=== PATIENT | female | born 1960 | race Caucasian/White ===

== ENCOUNTER 2017-12-25 18:56 | Emergency (ER) | payer OTHER ==
[~2017-12-25] VITALS: Ht 157.5 cm; Wt 57.0 kg
[2017-12-25 19:07] VITALS: BP 151/79; PULSE 84; RESP 18; TEMP 98; O2SAT 99
[2017-12-25] MEDS ORDERED: ARMO60TA PO (20:05)
[2017-12-25] MEDS ORDERED: SODIUM CHLOR 0.9% 1000 ML INJ 1,000 ML IV SCH (20:06)
--- NOTE | 2017-12-25 20:09 | PD ---
HPI Chief Complaint: Abdominal Pain Time Seen by Provider: 20:00 Travel History International Travel<30 days: No Contact w/Intl Traveler<30days: No Traveled to known affect area: No History of Present Illness HPI This is a 57-year-old female who presents for evaluation of abdominal pain. Symptoms started a few months ago. She reports that the pain has been intermittent in the right upper quadrant radiating to the back for the past few months, pain typically gets worse after meals. Over the past 4 days the pain has been more consistent and this is what prompted evaluation today. She denies nausea, vomiting, fevers, diarrhea, constipation, hematuria, dysuria, chest pain, shortness of breath. She reports history of , denies any other abdominal surgeries. She has no other complaints at this time. [facility] Past Medical History Thyroid Disease: Yes (hypo) Tetanus Vaccination: Unknown Influenza Vaccination: No ?: Not Menopausal: Yes Past Surgical History Section: Yes Other Surgery: Yes (Breast lift) Social History Alcohol Use: Yes (1-2 drinks on weekends) Tobacco Use: No Substance Use: No Allergies-Medications (Allergen,Severity, Reaction): Coded Allergies: acetaminophen (Verified Allergy, Severe, 12/25/17) hydrocodone (Verified Allergy, Severe, 12/25/17) sulfamethoxazole (Verified Allergy, Severe, Hives, 12/25/17) trimethoprim (Verified Allergy, Severe, Hives, 12/25/17) Reported Meds & Prescriptions Reported Meds & Active Scripts Active Protonix (Pantoprazole Sodium) 20 Mg Tab 20 Mg PO DAILY Reported [place] Thyroid (Thyroid) 60 Mg Tab 60 Mg PO DAILY Review of Systems Except as stated in HPI: all other systems reviewed are Neg Physical Exam Narrative GENERAL: Well-developed well-nourished female no acute distress SKIN: Warm and dry. HEAD: Atraumatic. Normocephalic. EYES: Pupils equal and round. No scleral icterus. No injection or drainage. ENT: No nasal bleeding or discharge. Mucous membranes pink and moist. NECK: Trachea midline. No JVD. CARDIOVASCULAR: Regular rate and rhythm. No murmur appreciated. RESPIRATORY: No accessory muscle use. Clear to auscultation. Breath sounds equal bilaterally. GASTROINTESTINAL: Abdomen soft, mild right upper quadrant tenderness to palpation without guarding. No CVA tenderness. MUSCULOSKELETAL: No obvious deformities. No clubbing. No cyanosis. No edema. NEUROLOGICAL: Awake and alert. No obvious cranial nerve deficits. Motor grossly within normal limits. Normal speech. Data Data Last Documented VS Vital Signs Date Time Temp Pulse Resp B/P (MAP) Pulse Ox O2 Delivery O2 Flow Rate FiO2 12/25/17 19:07 98.0 84 18 151/79 (103) 99 Orders Orders Complete Blood Count With Diff (12/25/17 20:06) Comprehensive Metabolic Panel (12/25/17 20:06) Lipase (12/25/17 20:06) Urinalysis - C+S If Indicated (12/25/17 20:06) Us Abdomen Gallbladder (12/25/17 ) Iv Access Insert/Monitor (12/25/17 20:06) Ecg Monitoring (12/25/17 20:06) Oximetry (12/25/17 20:06) Sodium Chlor 0.9% 1000 Ml Inj (Ns 1000 M (12/25/17 20:06) Sodium Chloride 0.9% Flush (Ns Flush) (12/25/17 20:15) Electrocardiogram (12/25/17 20:06) Ed Discharge Order (12/25/17 22:10) Labs Laboratory Tests Test 12/25/17 20:15 12/25/17 20:30 White Blood Count 5.9 TH/MM3 Red Blood Count 4.12 MIL/MM3 Hemoglobin 13.1 GM/DL Hematocrit 39.3 % Mean Corpuscular Volume 95.4 FL Mean Corpuscular Hemoglobin 31.8 PG Mean Corpuscular Hemoglobin Concent 33.3 % Red Cell Distribution Width 12.6 % Platelet Count 267 TH/MM3 Mean Platelet Volume 6.8 FL Neutrophils (%) (Auto) 42.5 % Lymphocytes (%) (Auto) 49.6 % Monocytes (%) (Auto) 6.8 % Eosinophils (%) (Auto) 0.7 % Basophils (%) (Auto) 0.4 % Neutrophils # (Auto) 2.5 TH/MM3 Lymphocytes # (Auto) 2.9 TH/MM3 Monocytes # (Auto) 0.4 TH/MM3 Eosinophils # (Auto) 0.0 TH/MM3 Basophils # (Auto) 0.0 TH/MM3 CBC Comment DIFF FINAL Differential Comment Blood Urea Nitrogen 22 MG/DL Creatinine 0.82 MG/DL Random Glucose 87 MG/DL Total Protein 7.9 GM/DL Albumin 4.3 GM/DL Calcium Level 8.9 MG/DL Alkaline Phosphatase 78 U/L Aspartate Amino Transf (AST/SGOT) 17 U/L Alanine Aminotransferase (ALT/SGPT) 17 U/L Total Bilirubin 0.6 MG/DL Sodium Level 139 MEQ/L Potassium Level 3.6 MEQ/L Chloride Level 104 MEQ/L Carbon Dioxide Level 27.0 MEQ/L Anion Gap 8 MEQ/L Estimat Glomerular Filtration Rate 72 ML/MIN Lipase 124 U/L Urine Color YELLOW Urine Turbidity HAZY Urine pH 5.0 Urine Specific [place] 1.027 Urine Protein NEG mg/dL Urine Glucose (UA) NEG mg/dL Urine Ketones 20 mg/dL Urine Occult Blood NEG Urine Nitrite NEG Urine Bilirubin NEG Urine Urobilinogen 2.0 mg/dL Urine Leukocyte Esterase NEG Urine WBC 1 /hpf Urine Mucus FEW /lpf Microscopic Urinalysis Comment CULT NOT INDICATED MDM Medical Decision Making Medical Screen Exam Complete: Yes Emergency Medical Condition: Yes Medical Record Reviewed: Yes Differential Diagnosis Biliary colic, cholecystitis, choledocholithiasis, duodenal ulcer, peptic ulcer disease, colitis Narrative Course 57-year-old female presents with intermittent epigastric and right upper quadrant pain over the past few months, worse with meals, now more steady over the past few days. On examination she has mild epigastric and right upper quadrant tenderness without guarding. She appears well. Plan is for lab work, right upper quadrant ultrasound. She was given Protonix. The patient's lab work is been reviewed and found to be unremarkable. Right upper quadrant ultrasound reveals CONCLUSION: 1. Unremarkable right upper quadrant ultrasound exam. 2. Specifically, no cholelithiasis or sonographic evidence for cholecystitis. Ultrasound reveals no evidence of gallstones. Her pain may potentially be secondary to duodenal ulcer disease or peptic ulcer disease. The patient will be started empirically on a proton pump inhibitor and advised to follow-up with a superintendent stevedoring. Diagnosis Primary Impression: Abdominal pain Referrals: Lynda Farfan MD Additional Instructions: Please provide the patient a copy of all of her lab work and imaging studies upon discharge. Medication as prescribed. Avoid [id number] ibuprofen/naproxen/Motrin/Aleve/Advil Follow-up with a superintendent stevedoring such as the above listed. Return for any emergent medical conditions. Med/Other Pt SpecificInfo: Prescription(s) given Scripts Pantoprazole (Protonix) 20 Mg Tab 20 MG PO DAILY for Reflux, #30 TAB 0 Refills Prov: Ryan Neff MD 12/25/17 Disposition: 01 DISCHARGE HOME Condition: Stable Mynor Franklin Dec 25, 2017 20:09
[2017-12-25] MEDS ORDERED: SODIUM CHLORIDE 0.9% FLUSH 10 ML FLUSH IV FLUSH PRN (20:15)
[2017-12-25 20:51] LABS: AUTOMATED NEUTROPHIL # 2.5 TH/MM3 (1.8-7.7); BASOPHIL % 0.4 % (0.0-2.0); EOSINOPHIL % 0.7 % (0.0-4.0); HEMATOCRIT 39.3 % (35.0-46.0); HEMOGLOBIN 13.1 GM/DL (11.6-15.3); LYMPH % 49.6 % (9.0-44.0); LYMPHOCYTE # 2.9 TH/MM3 (1.0-4.8); MEAN CELL VOLUME 95.4 FL (80.0-100.0); MEAN CORPUSCULAR HEMOGLOBIN 31.8 PG (27.0-34.0); MEAN CORPUSCULAR HGB CONC 33.3 % (32.0-36.0); MEAN PLATELET VOLUME 6.8 FL (7.0-11.0); MONO % 6.8 % (0.0-8.0); MONOCYTE # 0.4 TH/MM3 (0-0.9); NEUT % 42.5 % (16.0-70.0); PLATELET COUNT 267 TH/MM3 (150-450); RED BLOOD COUNT 4.12 MIL/MM3 (4.00-5.30); RED CELL DISTRIBUTION WIDTH 12.6 % (11.6-17.2); WHITE BLOOD COUNT 5.9 TH/MM3 (4.0-11.0)
[2017-12-25 21:01] LABS: ALBUMIN 4.3 GM/DL (3.4-5.0); AST (GOT) 17 U/L (15-37); BLOOD UREA NITROGEN 22 MG/DL (7-18); CALCIUM 8.9 MG/DL (8.5-10.1); CHLORIDE 104 MEQ/L (98-107); CREATININE 0.82 MG/DL (0.50-1.00); GLOMERULAR FILTRATION RATE 72 ML/MIN (>89); GLUCOSE,RANDOM 87 MG/DL (74-106); SODIUM (NA) 139 MEQ/L (136-145)
[2017-12-25 21:04] LABS: ALKALINE PHOSPHATASE 78 U/L (45-117); ALT (GPT) 17 U/L (10-53); TOTAL BILIRUBIN ADULT 0.6 MG/DL (0.2-1.0); TOTAL PROTEIN 7.9 GM/DL (6.4-8.2)
[2017-12-25 21:04] LABS: BILIRUBIN, URINE NEG (NEG); BLOOD, URINE NEG (NEG); GLUCOSE,URINE NEG (NEG); KETONE, URINE 20 mg/dL (NEG); MUCUS URINE FEW /lpf (OCC); NITRITE,URINE NEG (NEG); URINE COLOR YELLOW (YELLW/STRAW); URINE LEUKOCYTE ESTERASE NEG (NEG)
--- NOTE | 2017-12-25 21:51 | RADRPT ---
EXAM DATE: 12/25/2017 9:44 PM EDT AGE/SEX: 57 years / Female INDICATIONS: Right upper quadrant pain radiating to the back after meals. CLINICAL DATA: This is the patient's initial encounter. Patient reports that signs and/or symptoms h ave been present for 3 months and indicates a pain score of 4/10. MEDICAL/SURGICAL HISTORY: Hypothyroidism. section. COMPARISON: No prior exams available for comparison. MEASUREMENTS (cm x cm x cm): Liver:__ 12.3 cm length Common Bile Duct:__ 7mm FINDINGS: Liver: Normal echotexture without focal lesion or ductal dilatation. Portal Vein: Hepatopedal flow seen in portal vein. Common Duct: No intraluminal mass or stone visualized. Gallbladder: Demonstrates no wall thickening or pericholecystic fluid. No stones visualized. Pancreas: The visualized portions are within normal limits Right Kidney: Normal echotexture and cortical thickness. No mass or hydronephrosis. Other: None. CONCLUSION: 1. Unremarkable right upper quadrant ultrasound exam. 2. Specifically, no cholelithiasis or sonographic evidence for cholecystitis. Electronically signed by: Ashok Jose MD 12/25/2017 9:50 PM EDT
[2017-12-25] MEDS ORDERED: PANT20 PO (22:03)
--- NOTE | 2017-12-26 00:13 | PD ---
Data Data Last Documented VS Vital Signs Date Time Temp Pulse Resp B/P (MAP) Pulse Ox O2 Delivery O2 Flow Rate FiO2 12/25/17 19:07 98.0 84 18 151/79 (103) 99 Orders Orders Complete Blood Count With Diff (12/25/17 20:06) Comprehensive Metabolic Panel (12/25/17 20:06) Lipase (12/25/17 20:06) Urinalysis - C+S If Indicated (12/25/17 20:06) Us Abdomen Gallbladder (12/25/17 ) Iv Access Insert/Monitor (12/25/17 20:06) Ecg Monitoring (12/25/17 20:06) Oximetry (12/25/17 20:06) Sodium Chlor 0.9% 1000 Ml Inj (Ns 1000 M (12/25/17 20:06) Sodium Chloride 0.9% Flush (Ns Flush) (12/25/17 20:15) Electrocardiogram (12/25/17 20:06) Ed Discharge Order (12/25/17 22:10) Labs Laboratory Tests Test 12/25/17 20:15 12/25/17 20:30 White Blood Count 5.9 TH/MM3 Red Blood Count 4.12 MIL/MM3 Hemoglobin 13.1 GM/DL Hematocrit 39.3 % Mean Corpuscular Volume 95.4 FL Mean Corpuscular Hemoglobin 31.8 PG Mean Corpuscular Hemoglobin Concent 33.3 % Red Cell Distribution Width 12.6 % Platelet Count 267 TH/MM3 Mean Platelet Volume 6.8 FL Neutrophils (%) (Auto) 42.5 % Lymphocytes (%) (Auto) 49.6 % Monocytes (%) (Auto) 6.8 % Eosinophils (%) (Auto) 0.7 % Basophils (%) (Auto) 0.4 % Neutrophils # (Auto) 2.5 TH/MM3 Lymphocytes # (Auto) 2.9 TH/MM3 Monocytes # (Auto) 0.4 TH/MM3 Eosinophils # (Auto) 0.0 TH/MM3 Basophils # (Auto) 0.0 TH/MM3 CBC Comment DIFF FINAL Differential Comment Blood Urea Nitrogen 22 MG/DL Creatinine 0.82 MG/DL Random Glucose 87 MG/DL Total Protein 7.9 GM/DL Albumin 4.3 GM/DL Calcium Level 8.9 MG/DL Alkaline Phosphatase 78 U/L Aspartate Amino Transf (AST/SGOT) 17 U/L Alanine Aminotransferase (ALT/SGPT) 17 U/L Total Bilirubin 0.6 MG/DL Sodium Level 139 MEQ/L Potassium Level 3.6 MEQ/L Chloride Level 104 MEQ/L Carbon Dioxide Level 27.0 MEQ/L Anion Gap 8 MEQ/L Estimat Glomerular Filtration Rate 72 ML/MIN Lipase 124 U/L Urine Color YELLOW Urine Turbidity HAZY Urine pH 5.0 Urine Specific [place] 1.027 Urine Protein NEG mg/dL Urine Glucose (UA) NEG mg/dL Urine Ketones 20 mg/dL Urine Occult Blood NEG Urine Nitrite NEG Urine Bilirubin NEG Urine Urobilinogen 2.0 mg/dL Urine Leukocyte Esterase NEG Urine WBC 1 /hpf Urine Mucus FEW /lpf Microscopic Urinalysis Comment CULT NOT INDICATED MDM Supervised Visit with PRITESH: Yes Narrative Course The history, exam, and medical decision-making in the associated mid-level provider note were completed with my assistance. I reviewed and agree with the findings presented. I attest that I had a [id number] encounter with the patient on the same day, and personally performed and documented my assessment and findings in the medical record. *My assessment and Findings: 57-year-old woman, presents to the emergency department with abdominal pain. Been off and on for well. Tends to be mostly postprandial. Worse recently. Her primary doctor today and was referred for an ultrasound. Ultrasound does not show any gallbladder disease is likely gastritis or peptic ulcer disease. Recommend PPI and outpatient follow-up. Diagnosis Primary Impression: Abdominal pain Referrals: Lynda Farfan MD Patient Instructions: General Instructions Departure Forms: Tests/Procedures Additional Instruction: Please provide the patient a copy of all of her lab work and imaging studies upon discharge. Medication as prescribed. Avoid [id number] ibuprofen/naproxen/Motrin/Aleve/Advil Follow-up with a geology scientist such as the above listed. Return for any emergent medical conditions. Scripts Pantoprazole (Protonix) 20 Mg Tab 20 MG PO DAILY for Reflux, #30 TAB 0 Refills Prov: Ryan Neff MD 12/25/17 Disposition: 01 DISCHARGE HOME Condition: Stable Ryan Neff MD Dec 26, 2017 00:13
== END 2017-12-25 22:42 | disposition home or self-care (01) ==
LOC: NEPD 18:56
DX: R10.11 Right upper quadrant pain (principal); E03.9 Hypothyroidism, unspecified; Z79.899 Other long term (current) drug therapy; Z88.6 Allergy status to analgesic agent; Z88.5 Allergy status to narcotic agent; Z88.2 Allergy status to sulfonamides; Z88.8 Allergy status to other drugs, medicaments and biological substances
CPT/HCPCS: 76705; 80053; 81001; 83690; 85025; 99284; J7030